=== PATIENT | male | born 1970 | race Native Hawaiian/Other Pacific Islander ===

== ENCOUNTER 2017-03-18 14:15 | Emergency (ER) | payer OTHER ==
[~2017-03-18] VITALS: Ht 182.9 cm; Wt 93.0 kg
[2017-03-18 14:37] LABS: PLATELET COUNT 210 K/uL (142-355)
[2017-03-18 14:47] LABS: POTASSIUM 3.8 mmol/L (3.6-5.2); SODIUM 134 mmol/L (136-145)
== END 2017-03-18 18:26 | disposition home or self-care (01) ==
LOC: ED 14:15
DX: G40.909 Epilepsy, unspecified, not intractable, without status epilepticus (principal)
CPT/HCPCS: 80053; 80164; 85027; 96360; 96374; 96375; 96376; 99284; J3360